=== PATIENT | female | born 1955 | race Caucasian/White ===

== ENCOUNTER 2017-09-13 19:21 | Inpatient (IN) | payer OTHER ==
[2017-09-13] MEDS ORDERED: Acetaminophen 325 MG TAB ONE (19:54)
[2017-09-13 19:55] LABS: #Basophils 0.1 thou/uL (0.0-0.2); #Lymphocytes 1.1 thou/uL (1.20-3.40); #Monocytes 0.6 thou/uL (0.11-0.59); #Neutrophils 8.6 thou/uL (1.40-6.50); %Basophils 0.7 % (0.0-1.0); %Eosinophils 0.3 % (0.0-10.0); %Lymphocytes 10.3 % (21.0-51.0); %Monocytes 6.2 % (0.0-10.0); %Neutrophils 82.6 % (42.0-75.0); Hemoglobin 12.3 g/dL (12.0-16.0); Mean Corpuscular HGB CONC 35.4 g/dL (32.0-36.0); Mean Corpuscular Hemoglobin 30.7 pg (27.0-31.0); Mean Corpuscular Volume 86.7 fl (81.0-99.0); Mean Platelet Volume 6.2 fL (7.4-10.4); Platelet Count 337 thou/uL (130-400); RBC Distribution Width 10.6 % (11.5-14.5); White Blood Cell (WBC) Count 10.4 thou/uL (4.8-10.8)
[2017-09-13 20:08] LABS: ALT (SGPT) 27 U/L (8-55); AST (SGOT) 29 U/L (5-34); Albumin 3.6 g/dL (3.4-4.8); Alkaline Phosphatase 117 U/L (40-150); Anion Gap 18 mmol/L (10-20); BUN (Urea Nitrogen) 9 mg/dL (9.8-20.1); Bilirubin, Total 0.8 mg/dL (0.2-1.2); Calc. Creatinine Clearance 0 mL/min (70-130); Calcium 9.5 mg/dL (7.8-10.44); Carbon Dioxide 23 mmol/L (23-31); Chloride 99 mmol/L (98-107); Estimated GFR-MDRD 77; Globulin 3.6 g/dL (2.4-3.5); Glucose 224 mg/dL (80-115); Potassium 3.7 mmol/L (3.5-5.1); Protein, Total 7.2 g/dL (6.0-8.3); Sodium 136 mmol/L (136-145)
--- NOTE | 2017-09-13 20:22 | RAD ---
SINGLE VIEW OF THE CHEST 09/13/17 COMPARISON: None. HISTORY: Cough. FINDINGS: Single view of the chest shows a normal sized cardiomediastinal silhouette. There is no evidence of c onsolidation, mass, or pleural effusion. The bones are unremarkable. IMPRESSION: No evidence of acute cardiopulmonary disease. POS: [facility]
[2017-09-13 20:31] LABS: Bilirubin Small (Negative); Blood, Urine Negative (Negative); Clarity Clear (Clear); Glucose, Urine (Dipstick) Negative (Negative); Leukocyte Negative (Negative); Nitrite Negative (Negative); Protein, Urine (Dipstick) 100 mg/dL (Neg-Trace)
[2017-09-13 20:53] LABS: Bacteria/HPF 1+ HPF (None Seen); WBC/HPF 0-3 HPF (0-3)
[2017-09-13] MEDS ORDERED: Piperacillin/Tazobactam 3.375 GM VIAL ONE (21:07)
[2017-09-13] MEDS ORDERED: Oseltamivir 75 MG CAP ONE (22:12)
[2017-09-14 00:09] VITALS: BMI 28.9
[2017-09-14] MEDS ORDERED: Ondansetron ODT 4 MG TAB SL PRN (00:36)
[2017-09-14] MEDS ORDERED: Ondansetron HCl/PF 4 MG/2 ML Vial IVP PRN (00:36)
--- NOTE | 2017-09-14 01:01 | HP ---
CHIEF COMPLAINT: Cough and fevers. HISTORY OF PRESENT ILLNESS: Patient is a 62-year-old female who presents with almost 2 week history of coughing and congestion. Patient states that her symptoms have gotten worse. She did see her PCP and had gotten some steroids and cough medication, but this has not helped. Her fevers have also go tten worse and this prompted her to go to the ER. She has complained of fevers going up to 104. She denied any travels or sick contacts. She does have some shortness of breath with her symptoms. Krystyna farias is also complaining of decreased appetite and p.o. intake. PAST MEDICAL HISTORY: Patient is significant for type 2 diabetes. PAST SURGICAL HISTORY: Patient has had prior back surgery as well as a and tonsillectomy. SOCIAL HISTORY: Negative for tobacco, social drinking only. REVIEW OF SYSTEMS: Please see HPI. Rest of 14-point review of system is negative. ALLERGIES: Patient has allergies to SULFA. CURRENT MEDICATIONS: Patient is on metformin as well as lisinopril. LABORATORY AND X-RAY DATA: Patient's CBC: White count was 10, H&H 12 and 34 with a platelet of 337. Sodium is 136, potassium 3.7, chloride 99, bicarbonate 23, BUN 9, creatinine 0.7. Patient's UA was negative for nitrites and leukocyte esterase. Patient's chest x-ray showed no evidence of cardiopul monary disease. PHYSICAL EXAMINATION: VITAL SIGNS: Blood pressure 108/67, pulse 117, respirations 24, patient satting 92% on 3 liters. GENERAL: Patient is awake, alert, and oriented x3 in no acute distress. HEENT: Pupils are equal, round, react to accommodation. Extraocular muscles are intact. TMs are cl ear. No erythema in throat. NECK: No JVD, no lymphadenopathy. HEART: Regular rhythm. LUNGS: With coarse breath sounds and some wheezes throughout. ABDOMEN: Positive bowel sounds, soft, nontender, nondistended. EXTREMITIES: No clubbing, cyanosis, or edema. NEUROLOGIC: Cranial nerves II-XII grossly intact. PSYCHIATRIC: Patient is cooperative and answers questions appropriately. SKIN: No rashes were noted. ASSESSMENT AND PLAN: 1. Viral versus bacterial pneumonia. Continue current antibiotics, continue supportive care, contin ue IV fluids. 2. Type 2 diabetes. Continue with outpatient regimen as well as insulin sliding scale. 3. Code status: Patient is FULL CODE.
[2017-09-14] MEDS ORDERED: Loratadine 10 MG TAB PO PRN (01:22)
[2017-09-14] MEDS ORDERED: Dextrose 50% Abboject 50 ML SYRINGE SLOW IVP PRN (01:23)
[2017-09-14] MEDS ORDERED: Dextrose 5% in Water 1,000 ML IV PRN (01:23)
[2017-09-14] MEDS: Sodium Chloride 0.9% 1,000 ML IV SCH ×3 (01:49→17:51)
[2017-09-14] MEDS: Guaifenesin DM 100-10/5 ML UDCUP PO PRN ×4 (02:12→17:51)
[2017-09-14] MEDS: Acetaminophen 325 MG TAB PO PRN ×3 (02:12→12:00)
[2017-09-14 05:20] LABS: #Lymphocytes 0.8 thou/uL (1.20-3.40); #Monocytes 0.6 thou/uL (0.11-0.59); #Neutrophils 8.8 thou/uL (1.40-6.50); %Basophils 0.3 % (0.0-1.0); %Eosinophils 0.2 % (0.0-10.0); %Lymphocytes 8.1 % (21.0-51.0); %Monocytes 6.1 % (0.0-10.0); %Neutrophils 85.3 % (42.0-75.0); Hemoglobin 10.6 g/dL (12.0-16.0); Mean Corpuscular HGB CONC 33.8 g/dL (32.0-36.0); Mean Corpuscular Hemoglobin 31.9 pg (27.0-31.0); Mean Corpuscular Volume 94.3 fl (81.0-99.0); Mean Platelet Volume 7.2 fL (7.4-10.4); Platelet Count 299 thou/uL (130-400); RBC Distribution Width 11.9 % (11.5-14.5); Red Blood Cell (RBC) Count 3.34 mill/uL (4.20-5.40); White Blood Cell (WBC) Count 10.3 thou/uL (4.8-10.8)
[2017-09-14 05:34] LABS: Anion Gap 10 mmol/L (10-20); BUN (Urea Nitrogen) 7 mg/dL (9.8-20.1); Calc. Creatinine Clearance 93 mL/min (70-130); Calcium 8.1 mg/dL (7.8-10.44); Carbon Dioxide 24 mmol/L (23-31); Chloride 106 mmol/L (98-107); Estimated GFR-MDRD 87; Glucose 247 mg/dL (80-115); Potassium 3.5 mmol/L (3.5-5.1); Sodium 136 mmol/L (136-145)
[2017-09-14] MEDS: HumaLOG 300 UNITS/3 ML VIAL SC PRN ×2 (06:22→20:19)
[2017-09-14] MEDS ORDERED: Clopidogrel Bisulfate 75 MG TAB ONE (06:45)
[2017-09-14] MEDS ORDERED: cefTRIAXone\\ROCEPHIN 1 GM in Sodium Chloride 0.9% 100 ML IVPB SCH (08:00)
[2017-09-14] MEDS: Meloxicam 15 MG TAB PO SCH ×3 (08:34→17:51)
[2017-09-14] MEDS: metFORMIN 500 MG TAB PO SCH ×2 (08:35→17:51)
[2017-09-14] MEDS: cefTRIAXone\\ROCEPHIN 1 GM, Syringe 0.4 ML in Sterile Water 9.6 ML SLOW IVP SCH (08:37)
[2017-09-14] MEDS: Azithromycin 500 MG in Sodium Chloride 0.9% 250 ML 250 ML IVPB SCH (08:39)
[2017-09-14] MEDS: Enoxaparin Sodium 30 MG/0.3 ML SYRINGE SC SCH (08:44)
[2017-09-14] MEDS: Lisinopril 5 MG TAB PO SCH (08:44)
[2017-09-14] MEDS: Oseltamivir 75 MG CAP PO SCH ×2 (10:15→20:09)
[2017-09-14] MEDS ORDERED: Melatonin 3 MG TAB PO PRN (14:59)
[2017-09-14] MEDS ORDERED: Temazepam 15 MG CAP PO PRN (14:59)
--- NOTE | 2017-09-14 14:59 | PDOC.EVN ---
Event Note - Event Note Event Note: Pt seen and examined. chart reviewed in detail will add Tamiflu given symptoms consistant with the illness. cont rest as per admitting MD> Follow final Cx results.
[2017-09-14] MEDS: Acetaminophen 500 MG TAB PO PRN (17:51)
[2017-09-14] MEDS ORDERED: Vancomycin HCl 1 GM in Premix Bag 1 BAG IVPB SCH (18:15)
[2017-09-14] MEDS: guaiFENesin ER 600 MG TAB PO SCH (20:09)
[2017-09-15] MEDS: Acetaminophen 500 MG TAB PO PRN ×3 (01:05→19:26)
[2017-09-15] MEDS: Guaifenesin DM 100-10/5 ML UDCUP PO PRN ×2 (01:05→19:26)
[2017-09-15 05:12] LABS: #Eosinphils 0.1 thou/uL (0.0-0.7); #Lymphocytes 1.1 thou/uL (1.20-3.40); #Monocytes 0.5 thou/uL (0.11-0.59); #Neutrophils 7.3 thou/uL (1.40-6.50); %Basophils 0.1 % (0.0-1.0); %Eosinophils 1.1 % (0.0-10.0); %Lymphocytes 11.7 % (21.0-51.0); %Monocytes 5.9 % (0.0-10.0); %Neutrophils 81.2 % (42.0-75.0); Hemoglobin 9.9 g/dL (12.0-16.0); Mean Corpuscular Hemoglobin 32.6 pg (27.0-31.0); Mean Corpuscular Volume 95.7 fl (81.0-99.0); Mean Platelet Volume 7.5 fL (7.4-10.4); Platelet Count 267 thou/uL (130-400); Red Blood Cell (RBC) Count 3.05 mill/uL (4.20-5.40)
[2017-09-15] MEDS: Sodium Chloride 0.9% 1,000 ML IV SCH ×2 (05:35→16:33)
[2017-09-15] MEDS: HumaLOG 300 UNITS/3 ML VIAL SC PRN ×2 (05:37→11:31)
[2017-09-15 05:48] LABS: Anion Gap 12 mmol/L (10-20); BUN (Urea Nitrogen) 5 mg/dL (9.8-20.1); Calc. Creatinine Clearance 93 mL/min (70-130); Calcium 8.1 mg/dL (7.8-10.44); Carbon Dioxide 19 mmol/L (23-31); Chloride 107 mmol/L (98-107); Estimated GFR-MDRD 87; Glucose 162 mg/dL (80-115); Potassium 3.3 mmol/L (3.5-5.1); Sodium 135 mmol/L (136-145)
[2017-09-15] MEDS: Azithromycin 500 MG in Sodium Chloride 0.9% 250 ML 250 ML IVPB SCH (07:35)
[2017-09-15] MEDS: Meloxicam 15 MG TAB PO SCH ×3 (08:42→16:32)
[2017-09-15] MEDS: Enoxaparin Sodium 30 MG/0.3 ML SYRINGE SC SCH (08:42)
[2017-09-15] MEDS: Oseltamivir 75 MG CAP PO SCH ×2 (08:42→19:22)
[2017-09-15] MEDS: metFORMIN 500 MG TAB PO SCH ×2 (08:42→16:32)
[2017-09-15] MEDS: guaiFENesin ER 600 MG TAB PO SCH ×2 (08:42→19:22)
[2017-09-15] MEDS: Lisinopril 5 MG TAB PO SCH (08:43)
[2017-09-15] MEDS: cefTRIAXone\\ROCEPHIN 1 GM, Syringe 0.4 ML in Sterile Water 9.6 ML SLOW IVP SCH (09:55)
[2017-09-15] MEDS ORDERED: Potassium Chloride 20 MEQ TAB PO SCH (10:45)
--- NOTE | 2017-09-15 14:55 | PDOC.PN ---
- Subjective Encounter Start Date: 09/15/17 Encounter Start Time: 14:54 Subjective: feels only a little better.c/o peristant cough,malaise,weakness - Objective Resuscitation Status: Resuscitation Status FULL:Full Resuscitation MAR Reviewed: Yes Vital Signs & Weight: Vital Signs (12 hours) Temp Pulse Resp BP Pulse Ox 09/15/17 11:56 89 16 95 09/15/17 11:00 98.3 F 84 16 110/72 95 09/15/17 08:43 93 09/15/17 08:00 98.8 F 100 22 H 92 L 09/15/17 07:59 98.8 F 93 16 95/61 92 L 09/15/17 06:14 98 18 98 09/15/17 04:12 95 Weight Weight 153 lb 1.6 oz I&O: 09/14/17 09/15/17 09/16/17 06:59 06:59 06:59 Intake Total 498 1620 Balance 498 1620 Result Diagrams: 09/15/17 03:46 09/15/17 03:46 Additional Labs: Accuchecks 09/15/17 09/15/17 09/14/17 11:23 05:38 20:16 POC Glucose 193 H 171 H 328 H 09/14/17 16:18 POC Glucose 223 H Microbiology 09/13/17 20:00 Urine clean catch Urine Culture - Final Beta-hemolytic Streptococcus 09/13/17 20:00 Nasal swab Influenza Types A,B Direct EIA - Final 09/13/17 20:00 Urine clean catch Urine Culture - Preliminary 09/13/17 19:57 Venous blood - Right Arm Blood Culture - Preliminary Specimen has been received and culture in progress. No Growth to date. 09/13/17 19:57 Venous blood - Right Arm Blood Culture - Preliminary Coagulase Neg Staphylococcus 09/13/17 19:45 Venous blood - Left Arm Blood Culture - Preliminary Specimen has been received and culture in progress. No Growth to date. 09/13/17 19:45 Venous blood - Left Arm Blood Culture - Preliminary NO GROWTH AT 48 HOURS Laboratory Tests 09/14/17 13:07 B-Natriuretic Peptide 105.0 H Phys Exam - Physical Examination Constitutional: NAD pale,weak looking HEENT: PERRLA, moist MMs, sclera anicteric, oral pharynx no lesions Neck: no nodes, no JVD, supple, full ROM Respiratory: no wheezing, no rales, no rhonchi, clear to auscultation bilateral Cardiovascular: RRR, no significant murmur Gastrointestinal: soft, non-tender, no distention, positive bowel sounds Musculoskeletal: no edema, pulses present Neurological: non-focal, normal sensation, moves all 4 limbs Psychiatric: normal affect, A&O x 3 Skin: no rash Dx/Plan (1) Acute viral bronchitis Code(s): J20.8 - ACUTE BRONCHITIS DUE TO OTHER SPECIFIED ORGANISMS Status: Acute Comment: suspected Influenza (2) UTI (urinary tract infection) Status: Acute (3) DM2 (diabetes mellitus, type 2) Status: Acute - Plan plan discussed w/ family, continue antibiotics, PT/OT, out of bed/ambulate, DVT proph w/SCDs empiric ABx and Tamiflu.cont nebs,mucinex,IS etc -: PT eval requested as pt very weak.may need HH on DC -: replace and recheck potassium. -: / Blood Cx+ve for coag -ve staph-likly a contaminant -: follow final Cx results.possible UTI-covered by Yara * . Review of Systems - Review of Systems Constitutional: weakness, malaise. negative: fever, chills, sweats, other Respiratory: Cough, Dry, Shortness of Breath, SOB with Excertion Cardiovascular: negative: chest pain, palpitations, orthopnea, paroxysmal nocturnal dyspnea, edema, light headedness, other Gastrointestinal: negative: Nausea, Vomiting, Abdominal Pain, Diarrhea, Constipation, Melena, Hematochezia, Other Genitourinary: negative: Dysuria, Frequency, Incontinence, Hematuria, Retention , Other Musculoskeletal: negative: Neck Pain, Shoulder Pain, Arm Pain, Back Pain, Hand Pain, Leg Pain, Foot Pain, Other Neurological: negative: Weakness, Numbness, Incoordination, Change in Speech, Confusion, Seizures, Other - Medications/Allergies Allergies/Adverse Reactions: Allergies Allergy/AdvReac Type Severity Reaction Status Date / Time Sulfa (Sulfonamide Allergy Verified 09/13/17 23:49 Antibiotics) Medications: Current Medications Acetaminophen (Tylenol) 500 mg PO Q4H PRN PRN Reason: Pain Last Admin: 09/15/17 08:51 Dose: 500 mg Albuterol/Ipratropium (Duoneb) 3 ml NEB [id number] PRN PRN Reason: SOB &/or Wheezing Albuterol/Ipratropium (Duoneb) 3 ml NEB [id number] [facility] Last Admin: 09/15/17 11:56 Dose: 3 ml Aspirin (Aspirin Chewable) 81 mg PO DAILY [facility] Last Admin: 09/15/17 08:42 Dose: 81 mg Dextrose/Water (Dextrose 50%) 25 gm SLOW IVP PRN PRN PRN Reason: Hypoglycemia Enoxaparin Sodium (Lovenox) 30 mg SC 0900 [facility] Last Admin: 09/15/17 08:42 Dose: 30 mg Glucagon (Glucagon) 1 mg IM PRN PRN PRN Reason: Hypoglycemia Guaifenesin (Mucinex) 1,200 mg PO Q12HR [facility] Last Admin: 09/15/17 08:42 Dose: 1,200 mg Guaifenesin/Dextromethorphan (Robitussin Dm) 15 ml PO Q4H PRN PRN Reason: Cough Last Admin: 09/15/17 01:05 Dose: 15 ml Azithromycin 500 mg/ Sodium (Chloride) 250 mls @ 250 mls/hr IVPB Q24HR [facility] Last Admin: 09/15/17 07:35 Dose: 250 mls Dextrose/Water (D5w) 1,000 mls @ 0 mls/hr IV .Q0M PRN; As Directed PRN Reason: Hypoglycemia Sodium Chloride (Normal Saline 0.9%) 1,000 mls @ 75 mls/hr IV .[id number] [facility] Last Admin: 09/15/17 05:35 Dose: 1,000 mls Ceftriaxone Sodium 1 gm/ (Syringe 0.4 ml/ Sterile Water) 10 mls @ 120 mls/hr SLOW IVP 0800 [facility] Last Admin: 09/15/17 09:55 Dose: 10 mls Insulin Human Lispro (Humalog) 0 units SC .MILD SLIDING SCALE PRN PRN Reason: Mild Correctional Scale Last Admin: 09/15/17 11:31 Dose: 2 unit Lisinopril (Zestril) 5 mg PO DAILY [facility] Last Admin: 09/15/17 08:43 Dose: Not Given Loratadine (Claritin) 10 mg PO DAILY PRN PRN Reason: Allergies Melatonin (Melatonin) 3 mg PO HS PRN PRN Reason: Insomnia Meloxicam (Mobic) 15 mg PO TID-[facility] Last Admin: 09/15/17 11:31 Dose: 15 mg Metformin HCl (Glucophage) 1,000 mg PO BID-[facility] Last Admin: 09/15/17 08:42 Dose: 1,000 mg Oseltamivir Phosphate (Tamiflu) 75 mg PO BID [facility] Stop: 09/18/17 09:01 Last Admin: 09/15/17 08:42 Dose: 75 mg Pantoprazole Sodium (Protonix) 40 mg PO DAILY [facility] Last Admin: 09/15/17 08:42 Dose: 40 mg Temazepam (Restoril) 15 mg PO HSPRN PRN PRN Reason: Insomnia Last Admin: 09/14/17 20:09 Dose: 15 mg
[2017-09-16] MEDS: Guaifenesin DM 100-10/5 ML UDCUP PO PRN ×3 (03:49→20:16)
[2017-09-16] MEDS: Sodium Chloride 0.9% 1,000 ML IV SCH (03:50)
[2017-09-16 04:11] LABS: #Basophils 0.1 thou/uL (0.0-0.2); #Eosinphils 0.4 thou/uL (0.0-0.7); #Lymphocytes 1.4 thou/uL (1.20-3.40); #Monocytes 0.5 thou/uL (0.11-0.59); #Neutrophils 5.8 thou/uL (1.40-6.50); %Basophils 0.7 % (0.0-1.0); %Eosinophils 4.5 % (0.0-10.0); %Lymphocytes 17.1 % (21.0-51.0); %Monocytes 5.6 % (0.0-10.0); %Neutrophils 72.1 % (42.0-75.0); Hemoglobin 10.3 g/dL (12.0-16.0); Mean Corpuscular HGB CONC 33.8 g/dL (32.0-36.0); Mean Corpuscular Hemoglobin 32.4 pg (27.0-31.0); Mean Corpuscular Volume 95.8 fl (81.0-99.0); Mean Platelet Volume 7.2 fL (7.4-10.4); Platelet Count 311 thou/uL (130-400); RBC Distribution Width 12.1 % (11.5-14.5); Red Blood Cell (RBC) Count 3.18 mill/uL (4.20-5.40)
[2017-09-16 04:26] LABS: Anion Gap 12 mmol/L (10-20); BUN (Urea Nitrogen) 4 mg/dL (9.8-20.1); Calc. Creatinine Clearance 96 mL/min (70-130); Calcium 8.3 mg/dL (7.8-10.44); Carbon Dioxide 18 mmol/L (23-31); Chloride 112 mmol/L (98-107); Estimated GFR-MDRD 90; Glucose 179 mg/dL (80-115); Potassium 3.6 mmol/L (3.5-5.1); Sodium 138 mmol/L (136-145)
[2017-09-16] MEDS: guaiFENesin ER 600 MG TAB PO SCH ×2 (09:53→20:15)
[2017-09-16] MEDS: Meloxicam 15 MG TAB PO SCH ×3 (09:54→16:29)
[2017-09-16] MEDS: metFORMIN 500 MG TAB PO SCH ×2 (09:54→16:29)
[2017-09-16] MEDS: Oseltamivir 75 MG CAP PO SCH ×2 (09:54→20:15)
[2017-09-16] MEDS: Enoxaparin Sodium 30 MG/0.3 ML SYRINGE SC SCH (09:56)
[2017-09-16] MEDS: Lisinopril 5 MG TAB PO SCH (09:57)
[2017-09-16] MEDS: Azithromycin 500 MG in Sodium Chloride 0.9% 250 ML 250 ML IVPB SCH (10:26)
[2017-09-16] MEDS: cefTRIAXone\\ROCEPHIN 1 GM, Syringe 0.4 ML in Sterile Water 9.6 ML SLOW IVP SCH (10:27)
--- NOTE | 2017-09-16 12:27 | RAD ---
PORTABLE CHEST: History: Shortness of breath. Fluid overload. Comparison: 09-13-17 FINDINGS: Heart size and mediastinum are within normal limits. The lungs are clear of any infiltrative process. IMPRESSION: No active intrathoracic disease. POS: [facility]
--- NOTE | 2017-09-16 12:51 | PQF ---
CLINICAL DOCUMENTATION IMPROVEMENT CLARIFICATION FORM: ICD-10 Updated PLEASE DO AN ADDENDUM TO THE PROGRESS NOTE WITH ANY DOCUMENTATION UPDATES OR ADDITIONS AND CARRY THROUGH TO DC SUMMARY. THANK YOU. DATE: 09/16/17 ATTN: Dr. Jones Please exercise your independent, professional judgment in responding to the clarification form. Clinical indicators are provided on the bottom of this form for your review Please check appropriate box(es): [ X ] Sepsis due to: (Pna, UTI, gangrenous gall bladder, etc.) UTI [ ] SIRS due to non-infectious process (please specify etiology) [ ] with organ dysfunction [ ] without organ dysfunction [ ] Severe sepsis with acute organ dysfunction of: (Examples: respiratory failure, encephalopathy, acute kidney failure, other) [ ] Localized infection without sepsis [ ] Other diagnosis [ ] Unable to determine In addition, please specify: Present on Admission (POA): [ X] Yes [ ] No [ ] Unable to determine For continuity of documentation, please document condition throughout progress notes and discharge summary. Thank You. CLINICAL INDICATORS - SIGNS / SYMPTOMS / LABS ED REPORT: BP 149/88, PULSE 127, TEMP 102.9, O2 SAT 87 ROOM AIR RESP. 24 DX: SEPSIS. PNEUMONIA H&P: SHE HAS COMPLAINED OF FEVERS GOING UP TO 104. RISKS: PN 09/15/17: ACUTE VIRAL BRONCHITIS. SUSPECTED INFLUENZA. UTI. DM 2. TREATMENTS: CPOE 09/14/17: ROCEPHIN 1 GM IV Q 24 HRS. CPOE 09/14/17: ZITHROMAX 500 MG IV Q 24 HR Thank you, Ness (This form is maintained as a part of the permanent medical record) 2015 [employer]. All Rights Reserved Ness Babcock RN, BSN [email or web address] Office: [phone] [facility]
[2017-09-16] MEDS: HumaLOG 300 UNITS/3 ML VIAL SC PRN (12:57)
--- NOTE | 2017-09-16 14:40 | PDOC.PN ---
- Subjective Encounter Start Date: 09/16/17 Encounter Start Time: 14:35 Subjective: feels weak still.loose stools - Objective Resuscitation Status: Resuscitation Status FULL:Full Resuscitation MAR Reviewed: Yes Vital Signs & Weight: Vital Signs (12 hours) Temp Pulse Pulse Pulse Resp BP BP 09/16/17 12:28 89 106 H 123/85 09/16/17 09:57 88 125/85 09/16/17 08:00 98.5 F 88 16 09/16/17 07:00 98.5 F 88 16 BP Pulse Ox Pulse Ox Pulse Ox 09/16/17 12:28 95 96 09/16/17 09:57 09/16/17 08:00 95 09/16/17 07:00 124/85 95 Weight Weight 153 lb 1.6 oz I&O: 09/15/17 09/16/17 09/17/17 06:59 06:59 06:59 Intake Total 1620 1900 Balance 1620 1900 Result Diagrams: 09/16/17 03:58 09/16/17 03:58 Additional Labs: Accuchecks 09/16/17 09/16/17 09/15/17 11:01 05:44 19:22 POC Glucose 179 H 172 H 141 H 09/15/17 15:54 POC Glucose 118 H Microbiology 09/13/17 20:00 Urine clean catch Urine Culture - Final Beta-hemolytic Streptococcus 09/13/17 20:00 Nasal swab Influenza Types A,B Direct EIA - Final 09/13/17 19:57 Venous blood - Right Arm Blood Culture - Final Coagulase Neg Staphylococcus Coagulase Neg Staphylococcus#2 09/13/17 19:45 Venous blood - Left Arm Blood Culture - Preliminary NO GROWTH AT 48 HOURS Radiology Reviewed by me: Yes Phys Exam - Physical Examination Constitutional: NAD HEENT: PERRLA, moist MMs, sclera anicteric, TM's clear, oral pharynx no lesions , 2+ tonsils Neck: no nodes, no JVD, supple, full ROM Respiratory: no wheezing, no rhonchi, clear to auscultation bilateral rales Cardiovascular: RRR, no significant murmur, no rub, gallop Gastrointestinal: soft, non-tender, no distention, positive bowel sounds Musculoskeletal: no edema, pulses present Neurological: non-focal, normal sensation, moves all 4 limbs Psychiatric: normal affect, A&O x 3 Skin: no rash Dx/Plan (1) Acute viral bronchitis Code(s): J20.8 - ACUTE BRONCHITIS DUE TO OTHER SPECIFIED ORGANISMS Status: Acute Comment: suspected Influenza (2) UTI (urinary tract infection) Status: Acute (3) DM2 (diabetes mellitus, type 2) Status: Acute - Plan PT/OT, respiratory therapy, incentive spirometry, out of bed/ambulate, DVT proph w/SCDs check stool Cx and C.Diff. add florastor for diarrhea -: Change Iv ABx to PO.cont tamiflu. -: CXR as crackles on exam. -: Urine cx looks more contamination than infection. -: initial CXR did not show PNA yet pt had fever [employer] * .likley sepsis due to viral illnes. * DC ivf.encourage ambulation * am labs Review of Systems - Review of Systems Constitutional: weakness, malaise. negative: fever, chills, sweats, other ENT: negative: Ear Pain, Ear Discharge, Nose Pain, Nose Discharge, Nose Congestion, Mouth Pain, Mouth Swelling, Throat Pain, Throat Swelling, Other Respiratory: negative: Cough, Dry, Shortness of Breath, Hemoptysis, SOB with Excertion, Pleuritic Pain, Sputum, Wheezing Cardiovascular: negative: chest pain, palpitations, orthopnea, paroxysmal nocturnal dyspnea, edema, light headedness, other Gastrointestinal: Nausea, Diarrhea. negative: Vomiting, Abdominal Pain, Constipation, Melena, Hematochezia, Other Genitourinary: negative: Dysuria, Frequency, Incontinence, Hematuria, Retention , Other Musculoskeletal: negative: Neck Pain, Shoulder Pain, Arm Pain, Back Pain, Hand Pain, Leg Pain, Foot Pain, Other Neurological: negative: Weakness, Numbness, Incoordination, Change in Speech, Confusion, Seizures, Other - Medications/Allergies Allergies/Adverse Reactions: Allergies Allergy/AdvReac Type Severity Reaction Status Date / Time Sulfa (Sulfonamide Allergy Verified 09/13/17 23:49 Antibiotics) Medications: Current Medications Acetaminophen (Tylenol) 500 mg PO Q4H PRN PRN Reason: Pain Last Admin: 09/15/17 19:26 Dose: 500 mg Albuterol/Ipratropium (Duoneb) 3 ml NEB [id number] PRN PRN Reason: SOB &/or Wheezing Aspirin (Aspirin Chewable) 81 mg PO DAILY [facility] Last Admin: 09/16/17 09:54 Dose: 81 mg Dextrose/Water (Dextrose 50%) 25 gm SLOW IVP PRN PRN PRN Reason: Hypoglycemia Enoxaparin Sodium (Lovenox) 30 mg SC 0900 [facility] Last Admin: 09/16/17 09:56 Dose: 30 mg Glucagon (Glucagon) 1 mg IM PRN PRN PRN Reason: Hypoglycemia Guaifenesin (Mucinex) 1,200 mg PO Q12HR [facility] Last Admin: 09/16/17 09:53 Dose: 1,200 mg Guaifenesin/Dextromethorphan (Robitussin Dm) 15 ml PO Q4H PRN PRN Reason: Cough Last Admin: 09/16/17 12:57 Dose: 15 ml Azithromycin 500 mg/ Sodium (Chloride) 250 mls @ 250 mls/hr IVPB Q24HR [facility] Last Admin: 09/16/17 10:26 Dose: 250 mls Dextrose/Water (D5w) 1,000 mls @ 0 mls/hr IV .Q0M PRN; As Directed PRN Reason: Hypoglycemia Ceftriaxone Sodium 1 gm/ (Syringe 0.4 ml/ Sterile Water) 10 mls @ 120 mls/hr SLOW IVP 0800 [facility] Last Admin: 09/16/17 10:27 Dose: 10 mls Insulin Human Lispro (Humalog) 0 units SC .MILD SLIDING SCALE PRN PRN Reason: Mild Correctional Scale Last Admin: 09/16/17 12:57 Dose: 2 unit Lisinopril (Zestril) 5 mg PO DAILY [facility] Last Admin: 09/16/17 09:57 Dose: 5 mg Loratadine (Claritin) 10 mg PO DAILY PRN PRN Reason: Allergies Melatonin (Melatonin) 3 mg PO HS PRN PRN Reason: Insomnia Meloxicam (Mobic) 15 mg PO TID-[facility] Last Admin: 09/16/17 12:56 Dose: 15 mg Metformin HCl (Glucophage) 1,000 mg PO BID-[facility] Last Admin: 09/16/17 09:54 Dose: 1,000 mg Oseltamivir Phosphate (Tamiflu) 75 mg PO BID [facility] Stop: 09/18/17 09:01 Last Admin: 09/16/17 09:54 Dose: 75 mg Pantoprazole Sodium (Protonix) 40 mg PO DAILY [facility] Last Admin: 09/16/17 09:54 Dose: 40 mg Saccharomyces Boulardii (Florastor) 250 mg PO DAILY [facility] Temazepam (Restoril) 15 mg PO HSPRN PRN PRN Reason: Insomnia Last Admin: 09/14/17 20:09 Dose: 15 mg
[2017-09-16 19:48] VITALS: TEMP 98.2
[2017-09-16] MEDS: Cefdinir 300 MG CAP PO SCH (20:15)
[2017-09-17] MEDS ORDERED: Ondansetron HCl/PF 4 MG/2 ML Vial SLOW IVP PRN (00:07)
[2017-09-17 04:46] LABS: Anion Gap 8 mmol/L (10-20); BUN (Urea Nitrogen) Less than 4 mg/dL (9.8-20.1); Calc. Creatinine Clearance 88 mL/min (70-130); Calcium 8.6 mg/dL (7.8-10.44); Carbon Dioxide 27 mmol/L (23-31); Chloride 109 mmol/L (98-107); Estimated GFR-MDRD 82; Glucose 156 mg/dL (80-115); Potassium 3.8 mmol/L (3.5-5.1); Sodium 140 mmol/L (136-145)
[2017-09-17 04:48] LABS: #Eosinphils 0.6 thou/uL (0.0-0.7); #Lymphocytes 1.7 thou/uL (1.20-3.40); #Monocytes 0.5 thou/uL (0.11-0.59); #Neutrophils 4.1 thou/uL (1.40-6.50); %Eosinophils 8.2 % (0.0-10.0); %Lymphocytes 25.2 % (21.0-51.0); %Monocytes 6.8 % (0.0-10.0); %Neutrophils 59.7 % (42.0-75.0); Mean Corpuscular HGB CONC 33.8 g/dL (32.0-36.0); Mean Corpuscular Hemoglobin 32.1 pg (27.0-31.0); Mean Corpuscular Volume 95.2 fl (81.0-99.0); Mean Platelet Volume 7.2 fL (7.4-10.4); Platelet Count 321 thou/uL (130-400); RBC Distribution Width 12.1 % (11.5-14.5); White Blood Cell (WBC) Count 6.9 thou/uL (4.8-10.8)
[2017-09-17] MEDS: Guaifenesin DM 100-10/5 ML UDCUP PO PRN ×2 (06:12→12:45)
[2017-09-17] MEDS: Cefdinir 300 MG CAP PO SCH (07:50)
[2017-09-17] MEDS: guaiFENesin ER 600 MG TAB PO SCH (07:50)
[2017-09-17] MEDS: Lisinopril 5 MG TAB PO SCH (07:51)
[2017-09-17] MEDS: Oseltamivir 75 MG CAP PO SCH (07:51)
[2017-09-17] MEDS: metFORMIN 500 MG TAB PO SCH (07:51)
[2017-09-17] MEDS: Meloxicam 15 MG TAB PO SCH ×2 (07:52→12:17)
[2017-09-17] MEDS: Enoxaparin Sodium 30 MG/0.3 ML SYRINGE SC SCH (07:52)
[2017-09-17 08:39] VITALS: BP 133/89
[2017-09-17] MEDS ORDERED: Saccharomyces boulardii 250 MG CAP PO SCH (09:00)
[2017-09-17] MEDS ORDERED: PROVENTIL INHALER 6.7 G (200 INHALATIONS) INH PRN (13:04)
[2017-09-17] MEDS ORDERED: Furosemide 20 MG/2 ML VIAL SLOW IVP SCH (13:15)
--- NOTE | 2017-09-17 15:25 | PDOC.PN ---
- Subjective Encounter Start Date: 09/17/17 Encounter Start Time: 15:23 Subjective: feels better but still coughing -: diarrhea slowed -: dry throat - Objective Resuscitation Status: Resuscitation Status FULL:Full Resuscitation MAR Reviewed: Yes Vital Signs & Weight: Vital Signs (12 hours) Temp Pulse Resp BP BP Pulse Ox 09/17/17 08:00 98.2 F 86 16 94 L 09/17/17 07:51 86 131/85 09/17/17 07:38 98.2 F 87 16 133/89 94 L Weight Weight 153 lb 1.6 oz I&O: 09/16/17 09/17/17 09/18/17 06:59 06:59 06:59 Intake Total 1900 Balance 1900 Result Diagrams: 09/17/17 03:54 09/17/17 03:54 Additional Labs: Accuchecks 09/17/17 09/17/17 09/16/17 11:37 05:28 19:44 POC Glucose 157 H 141 H 145 H 09/16/17 16:06 POC Glucose 107 Microbiology 09/16/17 15:30 Stool Stool Lactoferrin - Final 09/16/17 15:30 Stool Campylobacter Antigen Assay - Final 09/16/17 15:30 Stool Shiga Toxin Test - Final 09/16/17 15:30 Stool C. difficile [facility] Antigen & Toxins - Final 09/13/17 20:00 Urine clean catch Urine Culture - Final Beta-hemolytic Streptococcus 09/13/17 20:00 Nasal swab Influenza Types A,B Direct EIA - Final 09/13/17 19:57 Venous blood - Right Arm Blood Culture - Final Coagulase Neg Staphylococcus Coagulase Neg Staphylococcus#2 09/16/17 15:30 Stool Stool Culture - Preliminary 09/13/17 19:45 Venous blood - Left Arm Blood Culture - Preliminary NO GROWTH AT 48 HOURS Laboratory Tests 09/14/17 13:07 B-Natriuretic Peptide 105.0 H Phys Exam - Physical Examination Constitutional: NAD tired HEENT: PERRLA, moist MMs, sclera anicteric, oral pharynx no lesions Neck: no JVD Respiratory: clear to auscultation bilateral few basilar crackles Cardiovascular: RRR, no significant murmur Gastrointestinal: soft, non-tender, no distention, positive bowel sounds Musculoskeletal: no edema, pulses present Neurological: non-focal, normal sensation, moves all 4 limbs Psychiatric: normal affect, A&O x 3 Skin: no rash Dx/Plan (1) Acute viral bronchitis Code(s): J20.8 - ACUTE BRONCHITIS DUE TO OTHER SPECIFIED ORGANISMS Status: Acute Comment: suspected Influenza (2) UTI (urinary tract infection) Status: Acute (3) DM2 (diabetes mellitus, type 2) Status: Acute - Plan plan discussed w/ family, out of bed/ambulate, DVT proph w/SCDs willgive 1 dose lasix as crackles on exam -: DC mucinex.cont po ABx,tamiflu -: will DC home later today * . Review of Systems - Review of Systems Constitutional: weakness, malaise Respiratory: Cough. negative: Dry, Shortness of Breath, Hemoptysis, SOB with Excertion, Pleuritic Pain, Sputum, Wheezing Cardiovascular: negative: chest pain, palpitations, orthopnea, paroxysmal nocturnal dyspnea, edema, light headedness, other Gastrointestinal: negative: Nausea, Vomiting, Abdominal Pain, Diarrhea, Constipation, Melena, Hematochezia, Other Genitourinary: negative: Dysuria, Frequency, Incontinence, Hematuria, Retention , Other Musculoskeletal: negative: Neck Pain, Shoulder Pain, Arm Pain, Back Pain, Hand Pain, Leg Pain, Foot Pain, Other Neurological: negative: Weakness, Numbness, Incoordination, Change in Speech, Confusion, Seizures, Other - Medications/Allergies Allergies/Adverse Reactions: Allergies Allergy/AdvReac Type Severity Reaction Status Date / Time Sulfa (Sulfonamide Allergy Verified 09/13/17 23:49 Antibiotics) Medications: Current Medications Acetaminophen (Tylenol) 500 mg PO Q4H PRN PRN Reason: Pain Last Admin: 09/15/17 19:26 Dose: 500 mg Albuterol Sulfate (Proventil Hfa) 2 puff INH Q4H PRN PRN Reason: SOB &/or Wheezing Albuterol/Ipratropium (Duoneb) 3 ml NEB [id number] PRN PRN Reason: SOB &/or Wheezing Aspirin (Aspirin Chewable) 81 mg PO DAILY [facility] Last Admin: 09/17/17 07:51 Dose: 81 mg Cefdinir (Omnicef) 300 mg PO BID [facility] Last Admin: 09/17/17 07:50 Dose: 300 mg Dextrose/Water (Dextrose 50%) 25 gm SLOW IVP PRN PRN PRN Reason: Hypoglycemia Enoxaparin Sodium (Lovenox) 30 mg SC 0900 [facility] Last Admin: 09/17/17 07:52 Dose: 30 mg Glucagon (Glucagon) 1 mg IM PRN PRN PRN Reason: Hypoglycemia Guaifenesin (Mucinex) 1,200 mg PO Q12HR [facility] Last Admin: 09/17/17 07:50 Dose: 1,200 mg Guaifenesin/Dextromethorphan (Robitussin Dm) 15 ml PO Q4H PRN PRN Reason: Cough Last Admin: 09/17/17 12:45 Dose: 15 ml Dextrose/Water (D5w) 1,000 mls @ 0 mls/hr IV .Q0M PRN; As Directed PRN Reason: Hypoglycemia Insulin Human Lispro (Humalog) 0 units SC .MILD SLIDING SCALE PRN PRN Reason: Mild Correctional Scale Last Admin: 09/16/17 12:57 Dose: 2 unit Lisinopril (Zestril) 5 mg PO DAILY [facility] Last Admin: 09/17/17 07:51 Dose: 5 mg Loratadine (Claritin) 10 mg PO DAILY PRN PRN Reason: Allergies Melatonin (Melatonin) 3 mg PO HS PRN PRN Reason: Insomnia Meloxicam (Mobic) 15 mg PO TID-[facility] Last Admin: 09/17/17 12:17 Dose: 15 mg Metformin HCl (Glucophage) 1,000 mg PO BID-[facility] Last Admin: 09/17/17 07:51 Dose: 1,000 mg Ondansetron HCl (Zofran) 4 mg SLOW IVP Q6H PRN PRN Reason: Nausea/Vomiting Oseltamivir Phosphate (Tamiflu) 75 mg PO BID [facility] Stop: 09/18/17 09:01 Last Admin: 09/17/17 07:51 Dose: 75 mg Pantoprazole Sodium (Protonix) 40 mg PO DAILY [facility] Last Admin: 09/17/17 07:51 Dose: 40 mg Saccharomyces Boulardii (Florastor) 250 mg PO DAILY [facility] Last Admin: 09/17/17 07:50 Dose: 250 mg Temazepam (Restoril) 15 mg PO HSPRN PRN PRN Reason: Insomnia Last Admin: 09/14/17 20:09 Dose: 15 mg
--- NOTE | 2017-09-17 20:40 | DIS ---
DATE OF ADMISSION: 09/14/2017 DATE OF DISCHARGE: 09/17/2017 CONDITION AT THE TIME OF DISCHARGE: Stable and improved. DISCHARGE DIAGNOSES: 1. Acute viral bronchitis, suspected influenza. 2. Suspected urinary tract infection. 3. Diabetes mellitus type 2. 4. Sepsis secondary to urinary tract infection as well as viral bronchi. DISCHARGE MEDICATIONS: 1. Tamiflu 75 mg p.o. b.i.d. to finish a total of 10 doses. 2. Tessalon Perles t.i.d. p.r.n., albuterol inhaler q.6 hours as needed, Omnicef 300 mg p.o. b.i.d., Florastor 250 mg p.o. daily. Resume home medication as follows: Aspirin 81 mg daily, lisinopril 5 mg daily, loratadine as needed, meloxicam as needed, omeprazole 20 mg daily, and metformin 1000 mg p.o. b.i.d. PROCEDURES DONE IN THE HOSPITAL: Include chest x-ray, which did not show any evidence of pulmonary i nfiltrates or edema. CONSULTATIONS: None. PRIMARY CARE PHYSICIAN: Emmanuel Lemus M.D. Ms. Aranda presented to the emergency room with complaints of cough, congestion, fever, and malaise. Her chest x-ray was unremarkable. White cell count was 10. UA is negative. Chest x-ray was negativ e. She was admitted for possible viral versus bacterial infection, for further workup. She was star wesley on empiric antibiotics. Her rapid influenza test was negative. HOSPITAL COURSE: Hospital course was essentially unremarkable. Blood cultures grew 1/2 coag negativ e Staph, likely contaminant. Urine culture grew beta hemolytic streptococci and less than 50,000 CFU per mL. Stool C. diff and culture was negative. She was treated with a presumptive diagnosis of in fluenza with supportive and symptomatic care and had clinical improvement a little bit slowly. She w as eventually transitioned to oral antibiotics, which were continued to finish the empiric treatment. No clear evidence of bacterial infection is evident at this time. She was seen and examined prior to discharge. Please see hospitalist progress note for further detai ls including face to face interaction.
== END 2017-09-17 16:23 | disposition home or self-care (01) | DRG 872 ==
LOC: SCSER 19:21 → T4-A 21:05
PROVIDERS: ADMIT Hospitalist; ATTEND Hospitalist
DX: A41.9 Sepsis, unspecified organism (principal); E11.9 Type 2 diabetes mellitus without complications; N39.0 Urinary tract infection, site not specified; J20.8 Acute bronchitis due to other specified organisms
CPT/HCPCS: 36415; 36416; 71045; 80048; 80053; 81003; 81015; 83605; 83630; 83880; 85025; 87040; 87045; 87046; 87086; 87149; 87324; 87449; 87804; 87899; 93005; 94640; 94760; 96361; 96365; A4216; G8978-GP-CH; G8979-GP-CH; G8980-GP-CH; J0456; J0696; J1650; J1940; J2543; J3370; J7050; J7620

== ENCOUNTER 2018-10-21 06:18 | Day surgery (SDC) | payer OTHER ==
[2018-10-20 11:33] VITALS: BMI 27.8
--- NOTE | 2018-10-20 16:52 | HP ---
HISTORY OF PRESENT ILLNESS: Ms. Aranda is a 63-year-old woman, here today for 4 months worth of severe left lower extremity L5 pain and left-sided lower back pain. She has treated this with 8 weeks of physical therapy, respiratory care practitioner, more recently two different sets of epidural steroid injections with both Dr. Azar and Dr. Man which only offered slight relief. This resolved in the setting of an MRI from [facility], which revealed severe left L5 foraminal stenosis that would fit well. She has been using a cane now to ambulate for the last few weeks, and the pain continues to alter her ability to mobilize. PAST MEDICAL HISTORY: Significant for diabetes, hypertension, coronary artery disease, and hyperlipidemia. CURRENT MEDICATIONS: 1. Tylenol No.3. 2. Atorvastatin. 3. Omeprazole. 4. Aspirin. 5. Lisinopril. 6. Farxiga. 7. Meloxicam. 8. Metformin. PAST SURGICAL HISTORY: section and unspecified back surgery. ALLERGIES: TO SULFA DRUGS. PHYSICAL EXAMINATION: GENERAL: The patient is alert and oriented x3. Gait is severely antalgic, using cane to ambulate. Lower extremity exam is normal. ASSESSMENT: Lumbar radiculopathy. PLAN: Dr. Jones met with the patient, reviewed imaging, advocated for left L5 foraminotomy and facetectomy. He explained to the patient the risks, benefits, and alternatives to the procedure. The patient expressed understanding and elected to move forward with surgery as discussed. I do believe the patient is mentally competent and capable of making medical decisions for herself. We will move forward with surgery as planned. Job ID: [id number]
[2018-10-21] MEDS ORDERED: Famotidine/PF 20 mg/2ml Vial ONE (07:09)
[2018-10-21] MEDS ORDERED: Fentanyl 100 MCG/2 ML VIAL ONE (07:09)
[2018-10-21] MEDS ORDERED: ceFAZolin Sodium 2 GM/100 ML BAG ONE ×2 (07:12→11:12)
[2018-10-21] MEDS ORDERED: Bupivacaine HCl 0.5%/Epinephrine 1:200,000/PF 30 ml Vial ONE (07:18)
[2018-10-21] MEDS ORDERED: Thrombin 5000 UNITS/5 ML VIAL ONE (07:18)
[2018-10-21 08:14] LABS: Anion Gap 11 mmol/L (10-20); BUN (Urea Nitrogen) 21 mg/dL (9.8-20.1); Calc. Creatinine Clearance 70 mL/min (70-130); Calcium 9.8 mg/dL (7.8-10.44); Carbon Dioxide 28 mmol/L (23-31); Chloride 103 mmol/L (98-107); Estimated GFR-MDRD 66; Glucose 179 mg/dL (80-115); Potassium 4.2 mmol/L (3.5-5.1); Sodium 138 mmol/L (136-145)
[2018-10-21] MEDS ORDERED: SUGAMMADEX SODIUM 200 MG/2 ML VIAL ONE ×2 (09:07→09:19)
--- NOTE | 2018-10-21 10:59 | OP ---
DATE OF PROCEDURE: 10/21/2018 [employer] MACHINE OPERATOR: Sebastien Wilcox PA-C INDICATION: Pain. DIAGNOSIS: Left L5 radiculopathy. PROCEDURE PERFORMED: Left L5 foraminotomy, medial facetectomy. ANESTHESIA: General. DESCRIPTION OF PROCEDURE: The patient was brought into the operating room and placed under general anesthesia. She was flipped from the supine to prone position on the operating room table. A linear incision was planned over the L5 segment. After prepping and draping and after an appropriate preoperative pause, the incision was created. The soft tissues were swept left of midline. Self-retaining retractors were placed in the wound for optimal exposure. After confirming the appropriate level with C-arm fluoroscopy, high-speed cutting drill bit as well as 2, 3, and 4 mm Kerrisons were used to perform a laminectomy along the inferior aspect of L5 on the left. The exiting L5 nerve root was identified and a foraminotomy was performed over the exiting nerve root. There was protuberant disk material within the foramen and a limited diskectomy was performed to further decompress the nerve root. The wound was then irrigated. Hemostasis was maintained throughout. The wound was then closed in anatomic layers and a pressure dressing was applied. There were no known procedural complications. Job ID: [id number]
[2018-10-21] MEDS ORDERED: PROPOFOL 200 MG/20 ML VIAL ONE (15:07)
[2018-10-21] MEDS ORDERED: PHENYLEPHRINE-NS 100 MCG/ML 10 ML SYRINGE ONE (15:07)
[2018-10-21] MEDS ORDERED: Rocuronium Bromide 10 MG/ML (10ML VIAL) ONE (15:07)
[2018-10-21] MEDS ORDERED: ePHEDrine 50 MG/ML VIAL ONE (15:07)
[2018-10-21] MEDS ORDERED: Succinylcholine Chloride 20 MG/ML 10 ml SYRINGE FS ONE (15:07)
[2018-10-21] MEDS ORDERED: Lidocaine 1% PF 5 ML VIAL ONE (15:07)
[2018-10-21] MEDS ORDERED: Ondansetron PF 4 MG/2 ML Vial ONE (15:07)
[2018-10-21] MEDS ORDERED: Ketorolac Tromethamine 30 MG/ML VIAL ONE (15:07)
--- NOTE | 2018-10-21 18:43 | EKG ---
Test Reason : PREOP Blood Pressure : / mmHG Vent. Rate : 077 BPM Atrial Rate : 077 BPM P-R Int : 128 ms QRS Dur : 058 ms QT Int : 380 ms P-R-T Axes : 058 009 029 degrees QTc Int : 430 ms Normal sinus rhythm Low voltage QRS Abnormal ECG When compared with ECG of 13-SEP-2017 19:41, Vent. rate has decreased BY [address] Galen MAYES ([id number]) on 10/21/2018 6:43:20 PM Referred By: Sammy FRANCOIS Confirmed By:DR. Galen MAYES
== END 2018-10-21 12:17 | disposition home or self-care (01) ==
LOC: SDC 06:18
PROVIDERS: ATTEND Neurological Surgery
PROC: 0SB20ZZ Excision of Lumbar Vertebral Disc, Open Approach (ICD-10-PCS; principal; 2018-10-21)
DX: M54.16 Radiculopathy, lumbar region (principal); I10 Essential (primary) hypertension; I25.10 Atherosclerotic heart disease of native coronary artery without angina pectoris; E11.9 Type 2 diabetes mellitus without complications; E78.5 Hyperlipidemia, unspecified; Z88.2 Allergy status to sulfonamides; Z79.82 Long term (current) use of aspirin; Z79.1 Long term (current) use of non-steroidal anti-inflammatories (NSAID); Z79.899 Other long term (current) drug therapy; Z98.890 Other specified postprocedural states
CPT/HCPCS: 36415; 76000; 80048; 93005; 93010; J0131; J0670; J0690; J1885; J2001; J2405; J2704; J3010; J3490; S0028

== ENCOUNTER 2021-08-06 12:08 | Outpatient (CLI) | payer MEDICARE, OTHER ==
[2021-08-06 13:29] LABS: Mean Corpuscular HGB CONC 34.3 g/dL (32.0-36.0); Mean Corpuscular Hemoglobin 31.3 pg (27.0-33.0); Mean Corpuscular Volume 91.4 fl (81.6-98.3); Mean Platelet Volume 9.8 fl (7.4-10.4); Platelet Count 294 10x3/uL (150-450); RBC Distribution Width 12.9 % (11.5-14.5); Red Blood Cell (RBC) Count 3.83 10x6/uL (3.90-5.03); White Blood Cell (WBC) Count 8.8 10x3/uL (3.5-10.5)
[2021-08-06 13:39] LABS: PTT 24.7 sec (22.0-33.0); Prothrombin Time 11.2 sec (9.5-12.1)
[2021-08-06 13:42] LABS: Anion Gap 14 mmol/L (10-20); BUN (Urea Nitrogen) 13 mg/dL (9.8-20.1); Calc. Creatinine Clearance 0 mL/min (70-130); Calcium 9.7 mg/dL (7.8-10.44); Carbon Dioxide 29 mmol/L (23-31); Chloride 100 mmol/L (98-107); Glucose 213 mg/dL (80-115); Potassium 4.5 mmol/L (3.5-5.1); Sodium 138 mmol/L (136-145)
[2021-08-06 22:28] LABS: SARS-CoV-2 PCR by NAA Not Detected (NotDetected)
== END 2021-08-06 12:09 | disposition home or self-care (01) ==
LOC: LABBT 12:08
PROVIDERS: ATTEND Neurological Surgery
DX: Z01.818 Encounter for other preprocedural examination (principal); Z20.822 Contact with and (suspected) exposure to COVID-19
CPT/HCPCS: 80048; 85027; 85610; 85730; 93005; U0003; U0005; 93010

== ENCOUNTER 2021-08-09 05:27 | Observation (INO) | payer MEDICARE, OTHER ==
[2021-08-06 11:39] VITALS: BMI 32.1
[2021-08-09] MEDS ORDERED: ceFAZolin 2 GM/DEX 5% 100 ML BAG ONE ×2 (05:56)
[2021-08-09] MEDS ORDERED: Bupivacaine PF 0.5% 30 ML VIAL ONE (06:15)
[2021-08-09] MEDS ORDERED: EPINEPHrine 1 MG/ML AMP ONE (06:15)
[2021-08-09] MEDS ORDERED: Thrombin 5000 UNITS/5 ML VIAL ONE ×2 (06:16→08:02)
[2021-08-09] MEDS ORDERED: Neomycin-Polymyxin 1 ML AMP ONE (06:16)
[2021-08-09] MEDS ORDERED: Fentanyl 100 MCG/2 ML VIAL ONE ×5 (06:37→15:03)
[2021-08-09] MEDS ORDERED: Ketamine 50 MG/ML (10ML VIAL) ONE (06:37)
[2021-08-09] MEDS ORDERED: Promethazine 25 MG TAB PO PRN (06:40)
[2021-08-09] MEDS ORDERED: Morphine 2 MG/ML VIAL SLOW IVP PRN (06:40)
[2021-08-09] MEDS ORDERED: Promethazine HCl 12.5 MG SUPP PR PRN (06:40)
[2021-08-09] MEDS ORDERED: Mag-Al 1200 mg/1200 mg/30 ML UDCUP PO PRN (06:40)
[2021-08-09] MEDS ORDERED: HYDROcodone/Acetaminophen 10/325 mg Tablet PO PRN (06:40)
[2021-08-09] MEDS ORDERED: Cyclobenzaprine 10 MG TAB PO PRN (06:40)
[2021-08-09] MEDS ORDERED: Bisacodyl 10 MG SUPP PR PRN (06:40)
[2021-08-09] MEDS ORDERED: diphenhydrAMINE 25 MG CAP PO PRN (06:40)
[2021-08-09] MEDS ORDERED: HYDROcodone/Acetaminophen 7.5/325 mg Tablet PO PRN (06:40)
[2021-08-09] MEDS ORDERED: Milk Of Magnesia 30 ML UDCUP PO PRN (06:40)
[2021-08-09] MEDS ORDERED: Insulin Regular 300 UNITS/3 ML VIAL ONE (06:43)
[2021-08-09] MEDS ORDERED: Midazolam HCl 2 mg/2 ml Vial ONE (06:43)
[2021-08-09] MEDS ORDERED: Morphine 4 MG/ML VIAL SLOW IVP PRN (06:55)
[2021-08-09] MEDS ORDERED: PROPOFOL 200 MG/20 ML VIAL ONE (07:05)
[2021-08-09] MEDS ORDERED: Rocuronium Bromide 10 MG/ML (10ML VIAL) ONE (07:05)
[2021-08-09] MEDS ORDERED: Dexamethasone 20 MG/5 ML VIAL ONE (07:05)
[2021-08-09] MEDS ORDERED: Ketorolac Tromethamine 30 MG/ML VIAL ONE (07:05)
[2021-08-09] MEDS ORDERED: Lidocaine 1% PF 5 ML VIAL ONE (07:05)
[2021-08-09] MEDS ORDERED: Ondansetron PF 4 MG/2 ML Vial ONE (07:05)
[2021-08-09] MEDS ORDERED: SUGAMMADEX SODIUM 200 MG/2 ML VIAL ONE (11:41)
[2021-08-09] MEDS ORDERED: Meperidine HCl/PF 25 MG/ML VIAL SLOW IVP PRN (12:12)
[2021-08-09] MEDS ORDERED: Ondansetron HCl/PF 4 MG/2 ML Vial IVP PRN (12:12)
[2021-08-09] MEDS ORDERED: HYDROmorphone 2 MG/ML VIAL SLOW IVP PRN (12:12)
[2021-08-09] MEDS ORDERED: Promethazine HCl 25 MG/ML VIAL IM PRN (12:12)
[2021-08-09] MEDS ORDERED: Promethazine HCl 25 MG/ML VIAL IVPB PRN (12:12)
[2021-08-09] MEDS ORDERED: CEFAZOLIN 2 GM in Premix Bag 1 BAG IVPB SCH (14:00)
[2021-08-09] MEDS: Sodium Chloride 0.9% 1,000 ML IV SCH ×2 (17:47→20:43)
[2021-08-09] MEDS: ceFAZolin Sodium/D5W 2 GM in Premix Bag 1 BAG IVPB SCH (20:42)
[2021-08-10] MEDS: ceFAZolin Sodium/D5W 2 GM in Premix Bag 1 BAG IVPB SCH (02:55)
[2021-08-10] MEDS: Acetaminophen/Codeine 30-300mg Tablet PO PRN ×3 (04:09→15:44)
[2021-08-10] MEDS ORDERED: HumaLOG 300 UNITS/3 ML VIAL SC PRN (08:55)
[2021-08-10] MEDS ORDERED: Dextrose 5% in Water 1,000 ML IV PRN (08:55)
[2021-08-10] MEDS ORDERED: Dextrose 50% Abboject 50 ML SYRINGE SLOW IVP PRN (08:55)
[2021-08-10] MEDS ORDERED: Lantus 1000 UNITS/10 ML VIAL SC SCH (09:00)
[2021-08-10] MEDS ORDERED: Cyanocobalamin (Vitamin B-12) 1,000 MCG TAB PO SCH (09:00)
[2021-08-10] MEDS ORDERED: Magnesium Oxide 250 MG TAB PO SCH (09:00)
[2021-08-10] MEDS ORDERED: Cholecalciferol 1,000 UNITS (25 MCG) TAB PO SCH (09:00)
[2021-08-10] MEDS ORDERED: FLUoxetine HCl 20 MG CAP PO SCH (09:00)
[2021-08-10] MEDS ORDERED: ZINC GLUCONATE ZINC PICOLINATE 30 MG PO SCH (09:00)
[2021-08-10] MEDS ORDERED: Multivit, Therapeutic 1 TAB PO SCH (09:00)
[2021-08-10] MEDS ORDERED: Atorvastatin Calcium 40 MG TAB PO SCH (09:00)
[2021-08-10] MEDS: Sodium Chloride 0.9% 1,000 ML IV SCH (10:11)
[2021-08-10 16:52] VITALS: BP 94/53; TEMP 100.8
[2021-08-10] MEDS ORDERED: metFORMIN 500 MG TAB PO SCH (17:00)
[2021-08-10] MEDS ORDERED: VIT C PO SCH (21:00)
[2021-08-10] MEDS ORDERED: Calcium Carbonate 600 MG TAB PO SCH (21:00)
[2021-08-10] MEDS ORDERED: VIT B12 PO SCH (21:00)
[2021-08-10] MEDS ORDERED: IRON CARB PO SCH (21:00)
[2021-08-10] MEDS ORDERED: FOLIC PO SCH (21:00)
[2021-08-11] MEDS ORDERED: Levothyroxine Sodium 25 MCG TAB PO SCH (06:00)
== END 2021-08-10 17:27 | disposition home health service (06) ==
LOC: SDC 05:27 → SJJU 06:40 → SDC 18:03 → SJJU 18:03
PROVIDERS: ADMIT Neurological Surgery; ATTEND Neurological Surgery
PROC: 0ST40ZZ Resection of Lumbosacral Disc, Open Approach (ICD-10-PCS; principal; 2021-08-09)
PROC: 0SG30J1 Fusion of Lumbosacral Joint with Synthetic Substitute, Posterior Approach, Posterior Column, Open Approach (ICD-10-PCS; 2021-08-09)
DX: M51.17 Intervertebral disc disorders with radiculopathy, lumbosacral region (principal); M53.2X7 Spinal instabilities, lumbosacral region; M99.43 Connective tissue stenosis of neural canal of lumbar region; M48.061 Spinal stenosis, lumbar region without neurogenic claudication; M19.90 Unspecified osteoarthritis, unspecified site; E11.9 Type 2 diabetes mellitus without complications; G89.29 Other chronic pain; I10 Essential (primary) hypertension; E78.5 Hyperlipidemia, unspecified; Z79.1 Long term (current) use of non-steroidal anti-inflammatories (NSAID); Z79.4 Long term (current) use of insulin; Z79.84 Long term (current) use of oral hypoglycemic drugs; Z79.899 Other long term (current) drug therapy; Z88.2 Allergy status to sulfonamides
CPT/HCPCS: 20930; 20936; 22633; 22840; 22853; 76000; 82962 ×2; 97116; 97139 ×5; 97535; C1713 ×5; C1768; C1776; 36416; 96365; 96376; G0378; J0171; J1100; J1815; J1885; J2250; J2405; J2704; J3010; J3370; S0020